=== PATIENT | male | born 1990 | race Caucasian/White ===

== ENCOUNTER 2021-05-08 09:21 | Emergency (ER) | payer SELFPAY ==
[2021-05-08 09:27] VITALS: BP 133/81; PULSE 89; RESP 24; TEMP 36.9; O2SAT 100
--- NOTE | 2021-05-08 09:44 | ED.URI ---
HPI - URI/Sore Throat General Chief Complaint: Upper Respiratory Infection Stated Complaint: cough and wheezing Time Seen by Provider: 05/08/21 09:40 Source: patient and RN notes reviewed Mode of arrival: ambulatory Limitations: no limitations History of Present Illness HPI Narrative: 30-year-old male presents with concern for cough, shortness of breath. He also reports nasal congestion, rhinorrhea. Report 6 months ago he had bronchitis and was treated with an inhaler. Reports since then he has not fully felt well. He denies any history of asthma. Denies having Covid. He reports his shortness of breath, wheezing, cough have increased over the last couple of days. He reports he also has nasal congestion and rhinorrhea. He denies any [id number] intervention MD elicited complaint: cough and other (Shortness of breath) Related Data Allergies Allergy/AdvReac Type Severity Reaction Status Date / Time Penicillins Allergy Hives Verified 05/08/21 09:37 Review of Systems Review of Systems: CONSTITUTIONAL: Denies malaise, chills, sweats, or fever. EYES: Denies visual changes, redness, or discharge. ENT: Reports rhinorrhea, congestion. Denies sinus pain, otalgia and sore throat. CARDIOVASCULAR: Denies chest pain, palpitations, or edema. RESPIRATORY: Reports cough, dyspnea. GASTROINTESTINAL: Denies abdominal pain, nausea, vomiting, diarrhea SKIN: Denies rash or itching. MUSCULOSKELETAL: Denies myalgia. NEUROLOGIC: Denies headache. All systems reviewed & are unremarkable except as noted in HPI and below PMFSH Comments At time of signature, agree with nursing past medical, surgical, social and family history. There is no relevant family history pertinent to the presenting complaint Exam Narrative: GENERAL: Well-appearing, well-nourished, and in no acute distress. HEAD: Normocephalic EYES: PERRLA, conjunctivae clear ENT: Nares clear, turbinates edematous and erythematous, clear discharge. Mucous membranes moist. TM pearly galindo with dull light reflex bilaterally; no tragal tenderness. Oropharynx not erythematous without lesions. Tonsils not enlarged and without exudate, no drooling, no hoarseness, no trismus, uvula midline. NECK: Supple. No lymphadenopathy CHEST: Scattered inspiratory and expiratory wheeze, diminished in the bases. No rhonchi, rales, or stridor. No respiratory distress, speaks in full sentences. HEART: Regular rate and rhythm. No murmur heard. SKIN: Warm, dry, no rash. NEURO: Alert and oriented x3. PSYCH: Normal mood and affect Course Course Emergency Course: Patient is aware of diagnosis, understands and agrees to treatment plan. Anticipatory guidance given. Patient agrees to follow-up as directed and is aware of reasons to seek care at the emergency department. Portions of this record may have been created with voice recognition software Level of Care: Express Care Visit Vital Signs Vital signs: Vital Signs Temperature 98.5 F 05/08/21 09:27 Pulse Rate 89 05/08/21 09:27 Respiratory Rate 24 H 05/08/21 09:27 Blood Pressure 133/81 05/08/21 09:27 Pulse Oximetry 100 05/08/21 09:27 Temperature 98.5 F 05/08/21 09:27 Pulse Rate 89 05/08/21 09:27 Respiratory Rate 24 H 05/08/21 09:27 Blood Pressure 133/81 05/08/21 09:27 Pulse Oximetry 100 05/08/21 09:27 Reviewed. MDM - URI/Sore Throat MDM Narrative Medical decision making narrative: Differential diagnosis considered: Tillman virus, strep pharyngitis, allergic rhinitis, upper respiratory tract infection, sinusitis, rhinosinusitis, nasopharyngitis. viral pharyngitis, otitis media, otitis externa, pneumonia, bronchitis, viral cough syndrome, viral syndrome, and influenza. Exam findings show no acute concerns or changes; patient is non-toxic appearing and is in no distress. Patient is appropriate for outpatient treatment and follow-up. Lab Data Attestation: I reviewed the patient's lab results. Critical Care Time Critical Care Time
[2021-05-08] MEDS: IPRATROPIUM BR 0.02% INH SOLN 0.5 MG/2.5 ML VIAL INHALATION (09:54)
[2021-05-08] MEDS: ALBUTEROL SULFATE NEB 2.5 MG/3 ML INH INHALATION (09:55)
[2021-05-08 10:25] VITALS: PULSE 90; RESP 18; O2SAT 100
== END 2021-05-08 10:30 | disposition home or self-care (01) ==
PROVIDERS: Emergency Provider Nurse Practitioner
DX: J40 Bronchitis, not specified as acute or chronic (principal)
CPT/HCPCS: 94640; 99214; G0463

== ENCOUNTER 2024-06-16 09:44 | Emergency (ER) | payer MEDICAID, SELFPAY ==
--- OUTSIDE RECORDS SUMMARY | 2024-06-16 09:46 | XMS_ITS | Clinical Summary ---
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 FIRST NEW CONTACT FOR EITHER IN 3 MO. SHE WAS TESTED TODAY AT [facility] Problems Includes: Problems addressed during this encounter and other active Problems No Active Problems Plan of Treatment - OTHER - Last Documented On 03/08/2009 5:53PM ; [facility] Bactrim DS 800-160 MG TABS, 1 twice a day, 10 days, 0 refills - Last Documented On 03/08/2009 5:53PM ; [facility] CALL W/ CONTACT DX TEST/ USE PROTECTION - Last Documented On 03/08/2009 5:53PM ; [facility] Assessments Includes: Assessments from this encounter Findings - Urethritis - Last Documented On 03/08/2009 5:53PM ; [facility] - Folliculitis - Last Documented On 03/08/2009 5:53PM ; [facility] Medical Equipment - Implanted Devices Includes: Current Devices No Medical Equipment Recorded Medications Includes: Medications discussed during this encounter and other current Medications New / Renewed during this visit RADHA BULL DO on 03/03/2009 Bactrim DS 800-160 MG OR TABS Provider: RADHA BULL DO 10 day supply: 20, 0 refills Diagnosis: Pharmacy: [facility] - [address] [place] [address], [phone] - Last Documented On 07/02/2021 7:44AM By PIERCE HART ; [facility] Current Medications (continue as prescribed) Doxycycline Hyclate 100 MG Oral Capsule 08/04/2023 Provider: IRA HERNANDEZ Diagnosis: Otitis media, unspecified, left ear One tablet twice a day Last Documented On 4 8:36AM By Ira HERNANDEZ ; [facility] Medrol 4 MG Oral Tablet Therapy Pack 08/04/2023 Provider: IRA OLIVER Diagnosis: Otitis media, unspecified, left ear as directed Last Documented On 4 8:36AM By Ira HERNANDEZ ; [facility] Medications Administered Includes: Administered Medications from this encounter No Administered Medications Recorded Vital Signs Includes: Vital Signs from this encounter Vital Name 03/03/2009 09:15A Blood Pressure Sitting (mmHg) 138/68 Respiration Rate (breaths/min) 16 Temp-Oral (F) 97.6 Weight (lb) 154 Last Documented: On 03/03/2009 9:19AM ; [facility] Results Includes: Results discussed during this encounter Urinalysis [facility] Ordered by RADHA BULL DO on 010 Collected: Reported: 03/03/2009 09:42 Last Documented On 0 9:44AM ; [facility] Reviewed on 07/02/2012; All test results are final unless otherwise noted. pH 5 (5-9) N (Normal) Last Documented On 0 9:44AM ; [facility] Leukocytes 75 (Negative) A (Abnormal) Last Documented On 0 9:44AM ; [facility] Nitrite n (Negative) N (Normal) Last Documented On 0 9:44AM ; [facility] Protein trace (Negative) A (Abnormal) Last Documented On 0 9:44AM ; [facility] Glucose n (Negative) N (Normal) Last Documented On 0 9:44AM ; [facility] Ketones n (Negative) N (Normal) Last Documented On 0 9:44AM ; [facility] Urobilinogen n (Negative) A (Abnormal) Last Documented On 0 9:44AM ; [facility] Bilirubin n (Negative) A (Abnormal) Last Documented On 0 9:44AM ; [facility] Blood n (Negative) N (Normal) Last Documented On 0 9:44AM ; [facility] Sp [place] 1.025 (1.015 - 1.030) N (Normal) Last Documented On 0 9:44AM ; [facility] History of Present Illness Includes: History of Present Illness from this encounter No History of Present Illness Recorded Social History Description Last Updated No tobacco use 09/18/2008 Last Documented On 0 9:15AM ; [facility] Not using alcohol 09/18/2008 Last Documented On 0 9:15AM ; [facility] Not using drugs 09/18/2008 Last Documented On 0 9:15AM ; [facility] Lives with unmarried father 08/26/2008 Last Documented On 0 9:15AM ; [facility] Smoking Status Unknown Medical History Includes: Medical History addressed during this encounter Description Last Updated A PPD was negative 09/18/2008 Last Documented On 0 9:15AM ; [facility] Blood pressure was not high 09/18/2008 Last Documented On 0 9:15AM ; [facility] No cardiac problems 09/18/2008 Last Documented On 0 9:15AM ; [facility] No exposure to tuberculosis 09/18/2008 Last Documented On 0 9:15AM ; [facility] No hearing problems 09/18/2008 Last Documented On 0 9:15AM ; [facility] No heart murmur 09/18/2008 Last Documented On 0 9:15AM ; [facility] No history of asthma 09/18/2008 Last Documented On 0 9:15AM ; [facility] No history of concussion 09/18/2008 Last Documented On 0 9:15AM ; [facility] No history of delayed milestones 009 Last Documented On 0 9:15AM ; [facility] No history of diabetes mellitus 09/19/19 09 Last Documented On 0 9:15AM ; [facility] No history of hematologic disorder 09/18 Last Documented On 0 9:15AM ; [facility] No history of sickle cell abnormality Last Documented On 0 9:15AM ; [facility] No orthopedic problems 09/18/2008 Last Documented On 0 9:15AM ; [facility] No previous hospitalizations 09/18/2008 Last Documented On 0 9:15AM ; [facility] No recent examination by an ophthalmolog ist 09/18/2008 Last Documented On 0 9:15AM ; [facility] No recent severe illness or injury 09/18 Last Documented On 0 9:15AM ; [facility] No Surgery 09/18/2008 Last Documented On 0 9:15AM ; [facility] No trauma to the head 09/18/2008 Last Documented On 0 9:15AM ; [facility] Not born with congenital abnormalities 0 09/18/2008 Last Documented On 0 9:15AM ; [facility] Not carrying hemophilia A 09/18/2008 Last Documented On 0 9:15AM ; [facility] Wearing contact lenses 09/18/2008 Last Documented On 0 9:15AM ; [facility] Patient's weight: 7 lbs 11 OZ 08/2008 Last Documented On 0 9:15AM ; [facility] History of the penis had been circumcise d 08/26/2008 Last Documented On 0 9:15AM ; [facility] is breast-feeding 08/26/2008 Last Documented On 0 9:15AM ; [facility] Surgery HERNIA 1994 08/26/2008 Last Documented On 0 9:15AM ; [facility] Vaginal delivery 08/26/2008 Last Documented On 0 9:15AM ; [facility] Family History Includes: Family History addressed during this encounter No Family History Recorded Review of Systems Includes: Review of Systems from this encounter Systemic: No edema. Head: No headache. Eyes: No vision problems. Cardiovascular: No chest pain or discomfort. Pulmonary: No shortness of breath. Neurological: No dizziness. Mental Status Includes: Mental Status from this encounter No Mental Status Recorded Functional Status Includes: Functional Status from this encounter No Functional Status Recorded Physical Exam Includes: Physical Exam from this encounter Allergies Includes: Active Allergies Substance Type Reaction Onset Date Resolved Date Statu s Penicillins Allergy 11/16/2016 Active Last Documented On 4 8:20AM ; [facility] Encounters Encounter Provider Location Date Check-In Time Check-Out Time Diagnosis SICK VISIT RADHA BULL [facility] 03/03/19 10 9:15AM 11:59PM Urethritis,Skin Disorders Appendage Hair Follicle Folliculitis Insurance Includes: Active Insurance Policies Plan Name Member ID Group # Subscriber Relationship Effect mauro Dates - [facility] [id number] RAISA SMITH Self Clinical Notes Includes: Clinical Notes from this encounter No Clinical Notes Recorded
--- OUTSIDE RECORDS SUMMARY | 2024-06-16 09:46 | XMS_ITS | Clinical Summary ---
Author Organization [facility] Address [address] [place] [address] Care Team Providers Care Information Systems Audit Manager Name Role Phone No, Physician Primary Care Provider [phone] Allergies Active Allergy Reactions Criticality Noted Date Comments Penicillins Hives Medium 05/08/2021 Medications fluticasone propion-salmete roL (ADVAIR DISKUS) 100-50 mcg/dose diskus inhaler Inhale 1 puff 2 (two) times a day Rinse mouth with water after use. Do not swallow. 1 each 2 Active Additional Information Patient not taking.Reported on 08/08/2021 naproxen (NAPROSYN) 500 mg tablet Take 1 tablet (500 mg total) by mouth 2 (two) times a day with meals 30 tablet 4 Active HYDROcodone-nighat taminophen (NORCO) 5-325 mg per tabletIndicatio ns:Pain Take 1 tablet by mouth every 6 (six) hours as needed for pain for up to 12 doses 12 tablet 4 Active Active Problems Problem Noted Date Diagnosed Date Fracture of other specified skull and facial bones, unspecified side, initial encounter for closed fracture 10/12/2016 Immunizations Immunization Administration Dates Next Due Tdap 02/01/2024 Surgical History Surgery Date Site/Laterality Comments HERNIA REPAIR Social History Tobacco Use Types Packs/Day Years Used Date Smoking Tobacco: Never Smokeless Tobacco: Never Personal Safety Answer Date Recorded Have you ever been in or are you currently in a harmful physical or emotional relationship or is someone making you feel afraid or unsafe? Denies 02/01/2024 Sex and Gender Information Value Date Recorded Sex Assigned at Not on file Legal Sex Male 11:20 AM [employer] Gender Identity Not on file Sexual Orientation Not on file Obstetrics History Last Filed Vital Signs Vital Sign Reading Time Taken Comments Blood Pressure 140/85 02/01/2024 3:01 PM [employer]P Pulse 77 02/01/2024 3:01 PM [employer] REP Temperature 36.4 C (97.5 F) 02/01/2024 3:01 PM [employer] REP Respiratory Rate 16 02/01/2024 3:01 PM [employer] REP Oxygen Saturation 98% 02/01/2024 3:01 PM [employer] REP Inhaled Oxygen Concentration - - Weight 83.9 kg (185 lb) 02/01/2024 3:01 PM [employer] REP Height 172.7 cm (5' 8 ) 02/01/2024 3:01 PM [employer] REP Body Mass Index 28.13 02/01/2024 3:01 PM [employer] REP Plan of Treatment Health Maintenance Due Date Last Done Comments Depression Screening 1990 Hepatitis C Screening 1990 Varicella Vaccines (1 of 2 - 13+ 2-dose series) 11/02/2003 Regular Well Visit/Exam 18-64 2008 Influenza Vaccine (#1) 2023 DTaP/Tdap/Td Vaccine (8 - Td or Tdap) 01/31/2034 02/01/2024, 09/30/2015, 09/26/1996, Additional history exists Hepatitis B Screening Completed 05/08/2001 , 12/14/2000, 11/07/2000 HPV Vaccines Aged Out No longer eligi ble based on patient's age to complete this topic Pneumococcal vaccine <65 Aged Out No longer eligible based on patient's age to complete this topic Insurance [facility] AETNA [employer] [facility] HMO/PPO Address: [address] [address] [place] [address] Care Teams Information Systems Audit Manager Relationship Specialty Start Date End Date No, Physician PCP - General 05/08/21
--- OUTSIDE RECORDS SUMMARY | 2024-06-16 09:46 | XMS_ITS | Clinical Summary ---
Author Organization [facility] Address [address] [place] [address] Phone Care Team Providers Care Car Rental Service Attendant Name Role Phone RADHA BULL DO [phone] Reason for Visit and Chief Complaint The Chief Complaint is: Sore throat, fever, body aches and headache for 2 days Problems Includes: Problems addressed during this encounter and other active Problems No Active Problems Plan of Treatment Throat culture sent, will call with results. Stay well hydrated and get plenty of rest. Can take OTC medications for symptoms such as expectorant and cough medication if needed. Discussed s/s of respiratory distress and when to go to ER. Can use humidifier or steam inhalation to help with chest congestion. If symptoms worsen or do not improve call/return to clinic. - Last Documented On 05/24/2023 9:53AM ; [facility] Assessments Includes: Assessments from this encounter Findings - Acute pharyngitis - Last Documented On 05/24/2023 9:53AM ; [facility] - Upper respiratory infection - Last Documented On 05/24/2023 9:53AM ; [facility] Medical Equipment - Implanted Devices Includes: Current Devices No Medical Equipment Recorded Medications Includes: Medications discussed during this encounter and other current Medications Discontinued / Stopped on this date JUAN SIDHU on 04/16/2022 Zithromax Z-Kavon 250 MG Oral Tablet Provider: JUAN SIDHU Diagnosis: Acute pharyngiti s, unspecified Last Documented On 05/24/2023 9:32AM By Lucie Fields MA ; [facility] Albuterol Sulfate HFA 108 (9 0 Base) MCG/ACT Inhalation Aerosol Solution Provider: Diagnosis: Last Documented On 05/24/2023 9:32AM By Lucie Fields MA ; [facility] Current Medications (continue as prescribed) Doxycycline Hyclate 100 MG Oral Capsule 08/04/2023 Provider: IRA HERNANDEZ Diagnosis: Otitis media, unspecified, left ear One tablet twice a day Last Documented On 4 8:36AM By Ira HERNANDEZ ; [facility] Medrol 4 MG Oral Tablet Therapy Pack 08/04/2023 Provider: IRA OLIVER Diagnosis: Otitis media, unspecified, left ear as directed Last Documented On 4 8:36AM By Ira HERNANDEZ ; [facility] Medications Administered Includes: Administered Medications from this encounter No Administered Medications Recorded Vital Signs Includes: Vital Signs from this encounter Vital Name 05/24/2023 09:24A Pulse Rate-Sitting (bpm) 78 Temp-Oral (F) 98.5 Height (in) 68.5 Weight (lb) 201.2 Body Mass Index 30.1 Body Surface Area 2.1 Oxygen Saturation (%) 98 Last Documented: On 05/24/2023 9:32AM ; [facility] Results Includes: Results discussed during this encounter Group A strep [facility] Ordered by RAUL ROWELL on 04/2023 Collected: Reported: 05/24/2023 09:45 Last Documented On 4 9:47AM ; [facility] Reviewed on 05/24/2023; All test results are final unless otherwise noted. Rapid Strep Negative N (Normal) Last Documented On 4 9:45AM ; [facility] LOT # AND EXP. DATE [id number] 12-16-25 N (Normal) Last Documented On 4 9:45AM ; [facility] INT. QC ACCEPTABLE? yes N (Normal) Last Documented On 4 9:45AM ; [facility] SARS COVID-19 FLU A & B [facility] Ordered by RAUL ROWELL on 04/2023 Collected: Reported: 05/24/2023 09:46 Last Documented On 4 9:47AM ; [facility] Reviewed on 05/24/2023; All test results are final unless otherwise noted. COVID Negative N (Normal) Last Documented On 4 9:46AM ; [facility] INFLUENZA A Negtive (Negative) N (Normal) Last Documented On 4 9:46AM ; [facility] INFLUENZA B Negative (negative) N (Normal) Last Documented On 4 9:46AM ; [facility] INT. QC ACCEPTABLE? yes N (Normal) Last Documented On 4 9:46AM ; [facility] LOT # & EXP. DATE [id number] 03-08-24 N (Normal) Last Documented On 4 9:46AM ; [facility] History of Present Illness Includes: History of Present Illness from this encounter GRACE FIELDS is a 32 year old male. - Allergy list reviewed - Medication list reviewed - Feeling tired - Feeling poorly (malaise) - Fever - Headache - No eye symptoms - No ear symptoms - No nasal discharge - No postnasal drip - No nasal passage blockage (stuffiness) - No sore throat - No chest pain or discomfort - No chest tightness or heavy pressure - No dyspnea - No cough - No wheezing - Normal appetite - No nausea - No vomiting - No abdominal pain - No diarrhea - No myalgia - No taste decreased Raisa is a 32-year-old male who presents to the [facility] with sore throat, fever, headache, body aches x 2 days. He has been taking OTC antihistamine for seasonal allergies. Social History Description Last Updated Tobacco non-user 05/24/2023 Last Documented On 4 9:53AM ; [facility] Smoking Status Unknown Procedures and Surgical History Includes: Procedures from this encounter Procedures Code Diagnosis Performing Provider Service L ocation Service Date Pt to use OTC fever/pain product as needed per product instruction.~ Last Documented On 4 9:48AM ; [facility] Pt to use OTC cough product as needed pe r product instruction.~ Last Documented On 4 9:48AM ; [facility] Pt to use OTC expectorant product as nee ded per product instruction.~ Last Documented On 4 9:48AM ; [facility] patient to call if symptoms worsen or not improved in 3-5 days to update patient's status Last Documented On 4 9:48AM ; [facility] use of tobacco assessment performed 1000F Last Documented On 4 9:33AM ; [facility] review of medications documented 1160F Last Documented On 4 9:33AM ; [facility] Medical History Includes: Medical History addressed during this encounter No Medical History Recorded Family History Includes: Family History addressed during this encounter No Family History Recorded Review of Systems Includes: Review of Systems from this encounter Systemic: No fever. Head: Headache. Otolaryngeal: No earache and no nasal discharge. Sore throat. Cardiovascular: No chest pain or discomfort. Pulmonary: No dyspnea, no cough, and no wheezing. Gastrointestinal: No vomiting, no abdominal pain, and no diarrhea. Musculoskeletal: Muscle aches. Neurological: No Loss of taste or smell. Skin: No skin symptoms. Mental Status Includes: Mental Status from this encounter Description Oriented to time, place, and person Functional Status Includes: Functional Status from this encounter No Functional Status Recorded Physical Exam Includes: Physical Exam from this encounter Allergies Includes: Active Allergies Substance Type Reaction Onset Date Resolved Date Statu s Penicillins Allergy 11/16/2016 Active Last Documented On 4 8:20AM ; [facility] Encounters Encounter Provider Location Date Check-In Time Check-Out Time Diagnosis COVID SICK VISIT- ESTABLISHED PATIENT RAUL ROWELL [facility] 05/24/19 24 9:23AM 9:49AM Upper Respiratory Infection,Phar yngitis Acute Insurance Includes: Active Insurance Policies Plan Name Member ID Group # Subscriber Relationship Effect mauro Dates 1 - [facility] [id number] RAISA FIELDS Self Clinical Notes Includes: Clinical Notes from this encounter * Progress note Date Encounter Last Documented by 05/24/2023 COVID SICK VISIT- ESTABLISHED PA JULIA Last documented on 05/24/2023; 9:53 AM, RAUL ROWELL; [facility] Chief Complaint The Chief Complaint is: Sore throat, fever, body aches and headache for 2 days. History of Present Illness RAISA FIELDS is a 32 year old male. - Allergy list reviewed - Medication list reviewed - Feeling tired - Feeling poorly (malaise) - Fever - Headache - No eye symptoms - No ear symptoms - No nasal discharge - No postnasal drip - No nasal passage blockage (stuffiness) - No sore throat - No chest pain or discomfort - No chest tightness or heavy pressure - No dyspnea - No cough - No wheezing - Normal appetite - No nausea - No vomiting - No abdominal pain - No diarrhea - No myalgia - No taste decreased Raisa is a 32-year-old male who presents to the [facility] with sore throat, fever, headache, body aches x 2 days. He has been taking OTC antihistamine for seasonal allergies. Social History Tobacco use: Tobacco non-user. Review Of Systems Systemic: No fever. Head: Headache. Otolaryngeal: No earache and no nasal discharge. Sore throat. Cardiovascular: No chest pain or discomfort. Pulmonary: No dyspnea, no cough, and no wheezing. Gastrointestinal: No vomiting, no abdominal pain, and no diarrhea. Musculoskeletal: Muscle aches. Neurological: No Loss of taste or smell. Skin: No skin symptoms. Physical Findings - Vitals taken 05/24/2023 09:24 am Pulse Rate-Sitting 78 bpm Temp-Oral 98.5 F Height 68.5 in Weight 201 lbs 3.2 oz Body Mass Index 30.1 kg/m2 Body Surface Area 2.1 m2 Oxygen Saturation 98 % General Appearance: - Awake. - Alert. - Well developed. - Well nourished. - Well hydrated. - In no acute distress. Eyes: General/bilateral: Pupils: - PERRLA. Ears: Right Ear: External Auditory Canal: - Normal. Tympanic Membrane: - Normal. - Not erythematous. Left Ear: External Auditory Canal: - Normal. Tympanic Membrane: - Normal. - Not erythematous. Nose: General/bilateral: Discharge: - No nasal discharge. Sinus Tenderness: - No sinus tenderness. Pharynx: Oropharynx: - Tonsils were erythematous. - Tonsils were enlarged. - Tonsils showed no abnormalities. - Tonsils showed no exudate. Lymph Nodes: - Lymph nodes: tender and enlarged anterior cevical lymph nodes. Lungs: - Normal breath sounds/voice sounds. - No wheezing was heard. - No rhonchi were heard. - No rales/crackles were heard. Cardiovascular: Heart Rate And Rhythm: - Normal. Murmurs: - No murmurs were heard. Abdomen: Auscultation: - Bowel sounds were normal. Palpation: - Abdomen was soft. - Abdominal non-tender. - No direct tenderness in the abdomen. Neurological: - Oriented to time, place, and person. Gait And Stance: - Normal. Tests - Test: Group A strep Report Date: 05/24/2023 Rapid Strep Negative Normal LOT # AND EXP. DATE [id number] 12-16-25 Normal INT. QC ACCEPTABLE? yes Normal - Test: SARS COVID-19 FLU A & B Report Date: 05/24/2023 COVID Negative Normal INFLUENZA A Negtive Normal INFLUENZA B Negative Normal INT. QC ACCEPTABLE? yes Normal LOT # & EXP. DATE [id number] 03-08-24 Normal Assessment - Acute pharyngitis - Upper respiratory infection Therapy - Patient to call if symptoms worsen or not improved in 3-5 days to update patient's status. Pt to use OTC fever/pain product as needed per product instruction. . Pt to use OTC cough product as needed per product instruction. . Pt to use OTC expectorant product as needed per product instruction. . Plan StartCited - Acute pharyngitis, unspecified Lab: Culture, Throat EndCited Throat culture sent, will call with results. Stay well hydrated and get plenty of rest. Can take OTC medications for symptoms such as expectorant and cough medication if needed. Discussed s/s of respiratory distress and when to go to ER. Can use humidifier or steam inhalation to help with chest congestion. If symptoms worsen or do not improve call/return to clinic. Practice Management Use of tobacco assessment performed Review of medications documented.
--- OUTSIDE RECORDS SUMMARY | 2024-06-16 09:46 | XMS_ITS | Clinical Summary ---
Author Organization [facility] Address [address] [place] [address] Phone Care Team Providers Care Auto Crane Driver Name Role Phone RADHA BULL DO [phone] Reason for Visit and Chief Complaint The Chief Complaint is: Lt ear pain since Monday-popping, and now feels clogged & worse with the pain Problems Includes: Problems addressed during this encounter and other active Problems No Active Problems Plan of Treatment Recommended OTC antihistamine and decongestant. Tylenol/ibuprofen prn for ear pain. Call/return to clinic if symptoms worsen or do not improve. - Last Documented On 08/04/2023 8:35AM ; [facility] Assessments Includes: Assessments from this encounter Findings - Otitis media of the left ear [H66.92 - Otitis media, unspecified, left ear] - Last Documented On 08/04/2023 8:35AM ; [facility] - Eustachian tube dysfunction [H69.80 - Other specified disorders of Eustachian tube, unspecified ear] - Last Documented On 08/04/2023 8:35AM ; [facility] Medical Equipment - Implanted Devices Includes: Current Devices No Medical Equipment Recorded Medications Includes: Medications discussed during this encounter and other current Medications New / Renewed during this visit IRA HERNANDEZ on 08/04/2023 Doxycycline Hyclate 100 MG Oral Capsule Provider: IRA HERNANDEZ 10 day supply: 20 capsule, 0 refills Diagnosis: Otitis media, unspecified, left ear One tablet twice a day Pharmacy: [facility] [address], [phone] - Last Documented On 8:36AM By Ira HERNANDEZ ; [facility] Medrol 4 MG Oral Tablet Therapy Pack Provider: IRA HERNANDEZ 6 day supply: 21 tablet, 0 refills Diagnosis: Otitis media, unspecified, left ear as directed Pharmacy: [facility] [address], [id number] - Last Documented On 8:36AM By Ira HERNANDEZ ; [facility] Past Medications on file Bactrim DS 800-160 MG OR TABS 03/03/2009 - 03/13/2009 Provider: RADHA BULL DO Diagnosis: Last Documented On 07/02/2021 7:44AM By PIERCE HART ; [facility] Medications Administered Includes: Administered Medications from this encounter No Administered Medications Recorded Vital Signs Includes: Vital Signs from this encounter Vital Name 08/04/2023 08:22A Blood Pressure Sitting L 98/70 BP Cuff Size Regular Pulse Rate-Sitting (bpm) 65 Pulse Rhythm Regular Respiration Rate (breaths/min) 21 Temp-Oral (F) 98.1 Height (in) 68.5 Weight (lb) 196 Body Mass Index 29.4 Body Surface Area 2 Oxygen Saturation (%) 99 Last Documented: On 08/04/2023 8:22AM ; [facility] Results Includes: Results discussed during this encounter No Results Recorded For Specified Dates History of Present Illness Includes: History of Present Illness from this encounter GRACE SMITH is a 32 year old male. - Allergy list reviewed - Medication list reviewed - Feeling fine - No fever - No chills - Headache - Earache in left ear - The ears feel pressured - The ears feel full - Nasal discharge - Postnasal drip - Nasal passage blockage (stuffiness) - No sore throat - No dyspnea - No cough - No wheezing - No vomiting - No skin symptoms Raisa is here today with pain, pressure and decreased hearing in the left ear that started a few days ago. He reports he has been having allergy and sinus issues and he recently went to [place] and flew home yesterday which seems to have aggravated the discomfort. He is taking [id number] antihistamine with minimal improvement. Social History Description Last Updated Tobacco non-user 08/04/2023 Last Documented On 4 8:35AM ; [facility] Smoking Status Unknown Procedures and Surgical History Includes: Procedures from this encounter Procedures Code Diagnosis Performing Provider Service L ocation Service Date use of tobacco assessment performed 1000F Last Documented On 4 8:21AM ; [facility] Medical History Includes: Medical History addressed during this encounter No Medical History Recorded Family History Includes: Family History addressed during this encounter No Family History Recorded Review of Systems Includes: Review of Systems from this encounter Head: No headache. Otolaryngeal: Earache and nasal discharge. No sore throat. Pulmonary: No cough. Gastrointestinal: No gastrointestinal symptoms. Skin: No skin symptoms. Mental Status Includes: Mental Status from this encounter Description Oriented to time, place, and person Functional Status Includes: Functional Status from this encounter No Functional Status Recorded Physical Exam Includes: Physical Exam from this encounter Allergies Includes: Active Allergies Substance Type Reaction Onset Date Resolved Date Statu s Penicillins Allergy 11/16/2016 Active Last Documented On 4 8:20AM ; [facility] Encounters Encounter Provider Location Date Check-In Time Check-Out Time Diagnosis WALK IN PATIENT - ESTABLISHED PT IRA MCFADDEN-Margaux [facility] 08/04/19 24 8:16AM 8:36AM Otitis Media Left Ear,Eustachian Tube Dysfunction Insurance Includes: Active Insurance Policies Plan Name Member ID Group # Subscriber Relationship Effect mauro Dates 1 - [facility] [id number] RAISA SMITH Self Clinical Notes Includes: Clinical Notes from this encounter * Progress note Date Encounter Last Documented by 08/04/2023 WALK IN PATIENT - ESTABLISHED PT Last documented on 08/04/2023; 8:35 AM, IRA MCFADDEN-Margaux; [facility] Active Problems & Conditions - No Active Problems Chief Complaint The Chief Complaint is: Lt ear pain since Monday-popping, and now feels clogged & worse with the pain. History of Present Illness RAISA SMITH is a 32 year old male. - Allergy list reviewed - Medication list reviewed - Feeling fine - No fever - No chills - Headache - Earache in left ear - The ears feel pressured - The ears feel full - Nasal discharge - Postnasal drip - Nasal passage blockage (stuffiness) - No sore throat - No dyspnea - No cough - No wheezing - No vomiting - No skin symptoms Raisa is here today with pain, pressure and decreased hearing in the left ear that started a few days ago. He reports he has been having allergy and sinus issues and he recently went to [place] and flew home yesterday which seems to have aggravated the discomfort. He is taking [id number] antihistamine with minimal improvement. Current Medication - None Social History Tobacco use: Tobacco non-user. Allergies - Penicillins Review Of Systems Head: No headache. Otolaryngeal: Earache and nasal discharge. No sore throat. Pulmonary: No cough. Gastrointestinal: No gastrointestinal symptoms. Skin: No skin symptoms. Physical Findings - Vitals taken 08/04/2023 08:22 am BP-Sitting L 98/70 mmHg BP Cuff Size Regular Pulse Rate-Sitting 65 bpm Pulse Rhythm Regular Respiration Rate 21 per min Temp-Oral 98.1 F Height 68.5 in Weight 196 lbs Body Mass Index 29.4 kg/m2 Body Surface Area 2 m2 Oxygen Saturation 99 % General Appearance: - Awake. - Alert. - Well developed. - Well nourished. - Well hydrated. - In no acute distress. Eyes: General/bilateral: Pupils: - PERRLA. Ears: Right Ear: External Auditory Canal: - Normal. Tympanic Membrane: - Pus behind tympanic membrane. - Normal. - Not erythematous. Left Ear: External Auditory Canal: - Normal. Tympanic Membrane: - Examined. - Pus behind tympanic membrane. - Not erythematous. Nose: General/bilateral: Discharge: - No nasal discharge. Sinus Tenderness: - No sinus tenderness. Pharynx: Oropharynx: - Tonsils showed no abnormalities. - Tonsils were not erythematous. - Tonsils were not enlarged. - Tonsils showed no exudate. Lymph Nodes: - Normal. Lungs: - Normal breath sounds/voice sounds. - [...] and person. Gait And Stance: - Normal. Psychiatric: Psychiatric: Value PHQ9 score: 0 Assessment - Otitis media of the left ear [H66.92 - Otitis media, unspecified, left ear] - Eustachian tube dysfunction [H69.80 - Other specified disorders of Eustachian tube, unspecified ear] Plan StartCited - Otitis media, unspecified, left ear Doxycycline Hyclate 100 MG capsule One tablet twice a day, 10 days, 0 refills Medrol 4 MG tablet as directed, 6 days, 0 refills EndCited Recommended OTC antihistamine and decongestant. Tylenol/ibuprofen prn for ear pain. Call/return to clinic if symptoms worsen or do not improve. Practice Management Use of tobacco assessment performed. Health Reminders - Assess BMI satisfied 08/04/2023. - Assess Tobacco Use satisfied 08/04/2023.
--- OUTSIDE RECORDS SUMMARY | 2024-06-16 09:46 | XMS_ITS ---
Care Plan - [facility] Created on: June 16, 2024 RAISA SMITH : 1990 Sex: Male Author Organization [facility] Address [address] [place] [address] Phone Care Team Providers Care News Videotape Editor Name Role Phone RADHA BULL DO [phone]
--- OUTSIDE RECORDS SUMMARY | 2024-06-16 09:46 | XMS_ITS | Clinical Summary ---
Author Organization [facility] Address [address] [place] [address] Phone Care Team Providers Care Sales And Customer Relations Rep Name Role Phone RADHA BULL DO [phone] Reason for Visit and Chief Complaint The Chief Complaint is: PT HAS C/O WHEEZING, PRODUCTIVE COUGH, AND SINUS PRESSURE. SYMPTOMS STARTEDAROUND SIX DAYS AGO Problems Includes: Problems addressed during this encounter and other active Problems No Active Problems Plan of Treatment - Return to the clinic if condition worsens or new symptoms arise - Last Documented On 11/16/2016 10:48AM ; [facility] - Referred to primary care physician - Last Documented On 11/16/2016 10:48AM ; [facility] - Follow-up visit in 1-2 weeks with an office visit or sooner if symptoms persist or worsen - Last Documented On 11/16/2016 10:48AM ; [facility] - Transition in care, clinical summary provided - Last Documented On 11/16/2016 10:48AM ; [facility] - Patient to call if problem develops - Last Documented On 11/16/2016 10:48AM ; [facility] Instructions to patient Go to the emergency room if condition worsens Last Documented On 7 10:46AM ; [facility] Watch for signs/symptoms of infection Last Documented On 7 10:46AM ; [facility] Watch for signs/symptoms of infection, return to the clinic if seen Last Documented On 7 10:46AM ; [facility] Education and Decision Aids were provided during visit for: Patient education about anti biotics: need to finish even if feeling better Last Documented On 7 10:46AM ; [facility] Assessments Includes: Assessments from this encounter No Assessments Recorded Instructions Includes: Instructions from this encounter Instructions to patient Go to the emergency room if condition worsens Last Documented On 7 10:46AM ; [facility] Watch for signs/symptoms of infection Last Documented On 7 10:46AM ; [facility] Watch for signs/symptoms of infection, return to the clinic if seen Last Documented On 7 10:46AM ; [facility] Education and Decision Aids were provided during visit for: Patient education about anti biotics: need to finish even if feeling better Last Documented On 7 10:46AM ; [facility] Medical Equipment - Implanted Devices Includes: Current Devices No Medical Equipment Recorded Medications Includes: Medications discussed during this encounter and other current Medications New / Renewed during this visit JUAN SIDHU on 11/16/2016 Azithromycin 500MG Oral Tablet Provider: JUAN SIDHU 5 day supply: 5 tablet, 0 refills Diagnosis: Cough One tablet daily Pharmacy: [address], [id number] - Last Documented On 3 5:48PM By ARELI MCBRIDE ; [facility] ProAir HFA 108 (90 Base)MCG/ACT Inhalation Aerosol, solution Provider: JAUN SIDHU 30 day supply: 1 inhaler, 0 refills Diagnosis: Wheezing use as directed 2 puffs ever y 4-6 hours as needed Pharmacy: [address], [id number] - Last Documented On 3 5:48PM By ARELI MCBRDIE ; [facility] Current Medications (continue as prescribed) Doxycycline Hyclate 100 MG Oral Capsule 08/04/2023 Provider: IRA HERNANDEZ Diagnosis: Otitis media, unspecified, left ear One tablet twice a day Last Documented On 4 8:36AM By Ira HERNANDEZ ; [facility] Medrol 4 MG Oral Tablet Therapy Pack 08/04/2023 Provider: IRA Mccullough NP-C Diagnosis: Otitis media, unspecified, left ear as directed Last Documented On 4 8:36AM By Ira HERNANDEZ ; [facility] Past Medications on file Bactrim DS 800-160 MG OR TABS 03/03/2009 - 03/13/2009 Provider: RADHA BULL DO Diagnosis: Last Documented On 07/02/2021 7:44AM By PIERCE HART ; [facility] Medications Administered Includes: Administered Medications from this encounter No Administered Medications Recorded Vital Signs Includes: Vital Signs from this encounter Vital Name 11/16/2016 10:13A Blood Pressure Sitting R 122/80 BP Cuff Size Regular Pulse Rate-Sitting (bpm) 70 Pulse Rhythm Regular Temp-Tympanic (F) 97.6 Weight (lb) 155 Oxygen Saturation (%) 98 Last Documented: On 11/16/2016 10:18A M ; [facility] Results Includes: Results discussed during this encounter No Results Recorded For Specified Dates History of Present Illness Includes: History of Present Illness from this encounter GRACE NUÑEZ is a 26 year old male. Source of patient information was patient ? Medication list reviewed - Headache - Sinus pain - No facial pain - No neck pain - No swollen glands in the neck - No eye symptoms - The ears feel pressured in both ears - Nasal discharge purulent - Postnasal drip - Nasal passage blockage (stuffiness) - Sore throat comes and goes - No sneezing - No nasal itching - No chest pain or discomfort - Cough - Wheezing - No dyspnea - No heartburn - No nausea - No vomiting - No abdominal pain - No diarrhea - Vertigo - No skin symptoms Pt to clinic for cough, congestion, wheezing and fever x 7 days. Has tried Delysum with mild relief Social History Description Last Updated Smoking status : Current everyday smoker 11/16/2016 Last Documented On 7 10:48AM ; [facility] Procedures and Surgical History Includes: Procedures from this encounter Procedures Code Diagnosis Performing Provider Service L ocation Service Date medication instruction Last Documented On 7 10:46AM ; [facility] continue current medication Last Documented On 7 10:46AM ; [facility] the options include decongestants as nee ded per product instructions Last Documented On 7 10:46AM ; [facility] the options include antihistamines as ne eded per product instructions Last Documented On 10:46AM ; [facility] watch for signs/symptoms of infection Last Documented On 10:46AM ; [facility] watch for signs/symptoms of infection, r eturn to the clinic if seen Last Documented On 10:46AM ; [facility] Pt to use prescription as ordered. Purpo se of and use of medication discussed.~ Last Documented On 10:46AM ; [facility] Pt to use OTC fever/pain product as need ed per product instruction.~ Last Documented On 10:46AM ; [facility] Pt to use OTC cough product as needed pe r product instruction.~ Last Documented On 10:46AM ; [facility] Pt to use OTC expectorant product as nee ded per product instruction.~ Last Documented On 10:46AM ; [facility] Clinical summary provided to patient Last Documented On 10:46AM ; [facility] Clinical summary transmitted to [facility] provider electronically Last Documented On 10:46AM ; [facility] Medical History Includes: Medical History addressed during this encounter No Medical History Recorded Family History Includes: Family History addressed during this encounter No Family History Recorded Review of Systems Includes: Review of Systems from this encounter Systemic: Fever and chills. No night sweats. Head: Sinus pressure. Otolaryngeal: Earache, nasal discharge, postnasal drip, and nasal passage blockage (stuffiness). Pulmonary: Feeling congested in the chest, cough, and coughing up sputum. Mental Status Includes: Mental Status from this encounter No Mental Status Recorded Functional Status Includes: Functional Status from this encounter No Functional Status Recorded Physical Exam Includes: Physical Exam from this encounter Allergies Includes: Active Allergies Substance Type Reaction Onset Date Resolved Date Statu s Penicillins Allergy 11/16/2016 Active Last Documented On 4 8:20AM ; [facility] Encounters Encounter Provider Location Date Check-In Time Check- Out Time Diagnosis WALK-IN CLINIC SICK VISIT JUAN RAYMUNDO SUPPLIER MANAGER-BC [facility] 10:00AM 10:46AM Insurance Includes: Active Insurance Policies Plan Name Member ID Group # Subscriber Relationship Effect mauro Dates 1 - [facility] [id number] RAISA SMITH Self Clinical Notes Includes: Clinical Notes from this encounter No Clinical Notes Recorded
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
--- OUTSIDE RECORDS SUMMARY | 2024-06-16 09:46 | XMS_ITS | Encounter Summary ---
Author Organization [facility] Address [address] [place] [address] Phone Care Team Providers Care Mangle Catcher Name Role Phone Joss Turner Primary Care Provider [phone] Reason for Visit * Reason Onset Date Comments prior authorization denied b y insurance 05/29/2023 Insurance [employer] has d eclined to authorization MRI of Brain Encounter Details Date Type Department Care Team (Late st Contact Info) Description 05/29/2023 Telephone [facility] [address] [place] [address] Joss Turner, PAC [address] [place] [address] prior authorization denied by insurance (Insurance [employer] has declined to authorization MRI of Brain) Social History Tobacco Use Types Packs/Day Years Used Date Smoking Tobacco: Every Day Smokeless Tobacco: Never Sex and Gender Information Value Date Recorded Sex Assigned at Not on file Legal Sex Male 7:57 PM CDT Gender Identity Not on file Sexual Orientation Not on file documented as of this encounter Miscellaneous Notes * Telephone Encounter - Nati Joshi - 05/29/2023 11:19 AM CDT Images from the original note were not included. documented in this encounter Plan of Treatment Not on file documented as of this encounter Visit Diagnoses Not on filedocumented in this encounter Care Teams Mangle Catcher Relationship Specialty Start Date End Date Joss Turner, PAC [address] [place] [address] PCP - General Physician Tufting Machine Operator Single Needle 12/01/21 documented as of this encounter
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
--- OUTSIDE RECORDS SUMMARY | 2024-06-16 09:46 | XMS_ITS | Referral Summary ---
Author Organization [facility] Address [address] [place] [address] Care Team Providers Care Box Car Washer Name Role Phone No, Physician Primary Care Provider [phone] Allergies Active Allergy Reactions Criticality Noted Date [...] Immunization Administration Dates Next Due Tdap 02/01/2024 Social History Tobacco Use Types Packs/Day Years [...] on file Legal Sex Male 11:20 AM SPECIAL NEEDS CAREGIVER Gender Identity Not on file Sexual Orientation Not on file Last Filed Vital Signs Vital Sign Reading Time Taken Comments Blood Pressure 140/85 02/01/2024 3:01 PM SPECIAL NEEDS CAREGIVER Pulse 77 02/01/2024 3:01 PM SPECIAL NEEDS CAREGIVER Temperature 36.4 C (97.5 F) 02/01/2024 3:01 PM SPECIAL NEEDS CAREGIVER Respiratory Rate 16 02/01/2024 3:01 PM SPECIAL NEEDS CAREGIVER Oxygen Saturation 98% 02/01/2024 3:01 PM SPECIAL NEEDS CAREGIVER Inhaled Oxygen Concentration - - Weight 83.9 kg (185 lb) 02/01/2024 3:01 PM SPECIAL NEEDS CAREGIVER Height 172.7 cm (5' 8 ) 02/01/2024 3:01 PM SPECIAL NEEDS CAREGIVER Body Mass Index 28.13 02/01/2024 3:01 PM SPECIAL NEEDS CAREGIVER Plan of Treatment Not on file Insurance [facility] H[facility]PP[facility] Address: [address] [address] [place] [address] Care Teams Box Car Washer Relationship Specialty Start Date End Date No, Physician PCP - General 05/08/21
--- OUTSIDE RECORDS SUMMARY | 2024-06-16 09:46 | XMS_ITS | Clinical Summary ---
Author Organization [facility] [employer] Address [address] [place] [address] Care Team Providers Care Transition Program Manager Name Role Phone Unavailable Primary Care Provider Unavailabl e Source Comments [facility] [employer],non-owned Affiliates and Associated Physician Practices is amultiple site organization consisting of ambulatory clinics and hospital sitesin [place], [place], [place] and [place]. This disclosure is being madepursuant to the Care Everywhere program and may not contain all information available regarding this patient. Last updated 17.[facility] Allergies Active Allergy Reactions Criticality Noted Date Comments Penicillins Skin Reactions Medium 09/30/2016 Medications * Be aware that medications may not be up to date on this document. Alwaysverify current medications with the patient. traMADol (ULTRAM) 50 MG tablet Take 50 mg by mouth q6h PRN. 15 tablet 0 09/30/2016 Active Active Problems Problem Noted Date Diagnosed Date Fracture of other specified skull and facial bones, unspecified side, initial encounter for closed fracture 10/12/2016 Social History Tobacco Use Types Packs/Day Years Used Date Smoking Tobacco: Every Day Cigarettes Smokeless Tobacco: Never Alcohol Use Standard Drinks/Week Comments No 0 (1 standard drink = 0.6 oz pur e alcohol) Sex and Gender Information Value Date Recorded Sex Assigned at Not on file Legal Sex Male 5:30 PM [employer] Gender Identity Not on file Sexual Orientation Not on file Last Filed Vital Signs Vital Sign Reading Time Taken Comments Blood Pressure 128/84 09/30/2016 4:17 AM CDT Pulse 65 09/30/2016 4:17 AM CDT Temperature 36.4 C (97.6 F) 09/30/2016 4:17 AM CDT Respiratory Rate 16 09/30/2016 4:17 AM CDT Oxygen Saturation 100% 09/30/2016 4:17 AM CDT Inhaled Oxygen Concentration - - Weight 74.8 kg (165 lb) 09/30/2016 4:17 AM CDT Height 170.2 cm (5' 7 ) 09/30/2016 4:17 AM CDT Body Mass Index 25.84 09/30/2016 4:17 AM CDT Plan of Treatment Health Maintenance Due Date Last Done Comments HIV SCREENING 2005 HEPATITIS C SCREENING 10/27/2008 DTAP/TDAP/TD VACCINES (1 - Tdap) 2009 HEPATITIS B VACCINE (1 of 3 - 19+ 3-dose series) 2009 COVID-19 VACCINE (1 - 2023-2 5 season) 2023 DEPRESSION SCREENING 02/21/2024 INFLUENZA VACCINE (Season Ended) 2024 ZOSTER VACCINE (1 of 2) 2040 HIB VACCINE Aged Out No longer eligi ble based on patient's age to complete this topic HPV VACCINE Aged Out No longer eligi ble based on patient's age to complete this topic MENINGOCOCCAL (Group B) VACC INE SHARED DECISION-MAKING Aged Out No longer eligibl e based on patient's age to complete this topic MENINGOCOCCAL GROUPS A/C/Y/W VACCINE Aged Out No longer eligible b ased on patient's age to complete this topic PNEUMOCOCCAL VACCINE Aged Out No long er eligible based on patient's age to complete this topic
--- OUTSIDE RECORDS SUMMARY | 2024-06-16 09:46 | XMS_ITS | Clinical Summary ---
Author Organization [facility] Address [address] [place] [address] Phone Care Team Providers Care Loom Doffer Name Role Phone RADHA BULL DO [phone] Reason for Visit and Chief Complaint The Chief Complaint is: pt is here with chills,feverish,fatigue,ma,bro,sore throat,nausea and diarrhea for 2 days Problems Includes: Problems addressed during this encounter and other active Problems No Active Problems Plan of Treatment - Return to the clinic if condition worsens or new symptoms arise - Last Documented On 04/16/2022 5:55PM ; [facility] - Follow-up visit as needed with an office visit if symptoms persist or worsen - Last Documented On 04/16/2022 5:55PM ; [facility] - Patient to call if problem develops - Last Documented On 04/16/2022 5:55PM ; [facility] Instructions to patient Go to the emergency room if condition worsens Last Documented On 3 5:54PM ; [facility] Watch for signs/symptoms of infection Last Documented On 3 5:54PM ; [facility] Watch for signs/symptoms of infection, return to the clinic if seen Last Documented On 3 5:54PM ; [facility] Assessments Includes: Assessments from this encounter Findings - Acute pharyngitis - Last Documented On 04/16/2022 5:55PM ; [facility] Instructions Includes: Instructions from this encounter Instructions to patient Go to the emergency room if condition worsens Last Documented On 3 5:54PM ; [facility] Watch for signs/symptoms of infection Last Documented On 3 5:54PM ; [facility] Watch for signs/symptoms of infection, return to the clinic if seen Last Documented On 3 5:54PM ; [facility] Medical Equipment - Implanted Devices Includes: Current Devices No Medical Equipment Recorded Medications Includes: Medications discussed during this encounter and other current Medications Discontinued / Stopped on this date JUAN SIDHU on 11/16/2016 Azithromycin 500MG Oral Tablet Provider: JUAN SIDHU Diagnosis: Cough Last Documented On 3 5:48PM By ARELI MCBRIDE ; [facility] ProAir HFA 108 (90 Base)MCG/ ACT Inhalation Aerosol, solution Provider: JUAN SIDHU Diagnosis: Wheezing Last Documented On 3 5:48PM By ARELI MCBRIDE ; [facility] New / Renewed during this visit JUAN SIDHU on 04/16/2022 Zithromax Z-Kavon 250 MG Oral Tablet Provider: JUAN SIDHU 5 day supply: 6 tablet, 0 refills Diagnosis: Acute pharyngitis, unspecified as directed Pharmacy: [address] [address] - Last Documented On 05/24/2023 9:32AM By Lucie Fields MA ; [facility] Current Medications (continue as prescribed) Doxycycline Hyclate 100 MG Oral Capsule 08/04/2023 Provider: IRA HERNANDEZ Diagnosis: Otitis media, unspecified, left ear One tablet twice a day Last Documented On 4 8:36AM By Ira HERNANDEZ ; [facility] Medrol 4 MG Oral Tablet Therapy Pack 08/04/2023 Provider: IRA Mccullough NP-C Diagnosis: Otitis media, unspecified, left ear as directed Last Documented On 4 8:36AM By Ira HERNANDEZ ; [facility] Past Medications on file Bactrim DS 800-160 MG OR TABS 03/03/2009 - 03/13/2009 Provider: RADHA BULL DO Diagnosis: Last Documented On 07/02/2021 7:44AM By PIERCE HART ; [facility] Medications Administered Includes: Administered Medications from this encounter No Administered Medications Recorded Vital Signs Includes: Vital Signs from this encounter Vital Name 04/16/2022 05:47P Blood Pressure Sitting (mmHg) 130/72 Pulse Rate-Sitting (bpm) 97 Respiration Rate (breaths/min) 18 Temp-Oral (F) 99 Height (in) 68 Weight (lb) 190.8 Body Mass Index 29 Body Surface Area 2 Oxygen Saturation (%) 97 Last Documented: On 04/16/2022 5:48PM ; [facility] Results Includes: Results discussed during this encounter Group A strep [facility] Ordered by JUAN SIDHU on Collected: Reported: 04/16/2022 17:51 Last Documented On 3 5:54PM ; [facility] Reviewed by JUAN SIDHU on 04/16/2022; All test results are final unless otherwise noted. Rapid Strep neg N (Normal) Last Documented On 3 5:53PM ; [facility] LOT # AND EXP. DATE [id number] N (Normal) Last Documented On 3 5:53PM ; [facility] INT. QC ACCEPTABLE? yes N (Normal) Last Documented On 3 5:53PM ; [facility] History of Present Illness Includes: History of Present Illness from this encounter GRACE FIELDS is a 31 year old male. - Allergy list reviewed - Medication list reviewed - Fever - Feeling fine - Not feeling tired - No chills - Do not shake the whole body - Headache - No sinus pain - No neck pain - No eye symptoms - Nasal discharge - Sore throat constantly - Triggered by swallowing - No ear symptoms - No postnasal drip - No nasal passage blockage (stuffiness) - No sneezing - No nasal itching - No chest pain or discomfort - No dyspnea - No cough - No wheezing - Decreased appetite - Diarrhea - No heartburn - No nausea - No vomiting - No abdominal pain - No skin symptoms pt to clinic for above symptoms x 2 days Social History Description Last Updated Former smoker 04/16/2022 Last Documented On 3 5:55PM ; [facility] Smoking status : Current everyday smoker 11/16/2016 Last Documented On 3 5:47PM ; [facility] Lives with unmarried father 08/26/2008 Last Documented On 3 5:47PM ; [facility] Procedures and Surgical History Includes: Procedures from this encounter Procedures Code Diagnosis Performing Provider Service L ocation Service Date continue current medication Last Documented On 3 5:54PM ; [facility] the options include close observation Last Documented On 3 5:54PM ; [facility] watch for signs/symptoms of infection Last Documented On 3 5:54PM ; [facility] watch for signs/symptoms of infection, r eturn to the clinic if seen Last Documented On 3 5:54PM ; [facility] Pt will start antibiotic the rapy as ordered. Discussed with pt /family that pt is contagious for 24 hours after start of antibiotic therapy and the importance of completing full course of antibiotic therapy. Recommended replacement of oral care products after three days of antibiotic therapy to reduce risk reinoculation with strep. Observe for signs/symptoms of strep in pt contacts. Discussed with pt /family expected course of improvement. Pt may return to activities after completing 24 hours of antibiotic therapy and feel well. Family to call back if not better in 3 days or worsens Last Documented On 3 5:55PM ; [facility] Pt to use OTC fever/pain product as need ed per product instruction.~ Last Documented On 3 5:54PM ; [facility] plan of care reviewed and agreed to by t chika patient Last Documented On 3 5:54PM ; [facility] Increase fluids Last Documented On 3 5:54PM ; [facility] Clinical summary provided to patient Last Documented On 3 5:54PM ; [facility] Medical History Includes: Medical History addressed during this encounter Description Last Updated Taking OTC medications 04/16/2022 Last Documented On 3 5:55PM ; [facility] Taking OTC pain medication / fever. Usin g Motrin 04/16/2022 Last Documented On 3 5:55PM ; [facility] Taking OTC pain medication /fever. Using Tylenol 04/16/2022 Last Documented On 3 5:55PM ; [facility] Wearing contact lenses 09/18/2008 Last Documented On 3 5:47PM ; [facility] Patient's weight: 7 lbs 11 OZ 08/2008 Last Documented On 3 5:47PM ; [facility] Surgery HERNIA 1994 08/26/2008 Last Documented On 3 5:47PM ; [facility] Vaginal delivery 08/26/2008 Last Documented On 3 5:47PM ; [facility] Family History Includes: Family History addressed during this encounter Description Last Updated Cancer 08/26/2008 Last Documented On 3 5:47PM ; [facility] Family history of blood pressure was hig h 08/26/2008 Last Documented On 3 5:47PM ; [facility] Family history of diabetes mellitus 08/2008 Last Documented On 3 5:47PM ; [facility] Review of Systems Includes: Review of Systems from this encounter Systemic: Fever and chills. Head: Headache. Otolaryngeal: Nasal discharge and sore throat. Mental Status Includes: Mental Status from this encounter No Mental Status Recorded Functional Status Includes: Functional Status from this encounter No Functional Status Recorded Physical Exam Includes: Physical Exam from this encounter Allergies Includes: Active Allergies Substance Type Reaction Onset Date Resolved Date Statu s Penicillins Allergy 11/16/2016 Active Last Documented On 4 8:20AM ; [facility] Encounters Encounter Provider Location Date Check-In Time Check-Out Time Diagnosis COVID SICK VISIT- NEW PATIENT JUAN SIDHU [facility] 04/16/19 23 5:40PM 5:55PM Pharyngitis Acute Insurance Includes: Active Insurance Policies Plan Name Member ID Group # Subscriber Relationship Effect mauro Dates 1 - [facility] [id number] RAISA FIELDS Self Clinical Notes Includes: Clinical Notes from this encounter * Progress note Date Encounter Last Documented by 04/16/2022 COVID SICK VISIT- NEW PATIENT [facility] documented on 04/16/2022; 5:55 PM, JUAN SIDHU; [facility] Active Problems & Conditions - No Active Problems Chief Complaint The Chief Complaint is: Pt is here with chills,feverish,fatigue,ma,bro,sore throat,nausea and diarrhea for 2 days. History of Present Illness RAISA FIELDS is a 31 year old male. - Allergy list reviewed - Medication list reviewed - Fever - Feeling fine - Not feeling tired - No chills - Do not shake the whole body - Headache - No sinus pain - No neck pain - No eye symptoms - Nasal discharge - Sore throat constantly - Triggered by swallowing - No ear symptoms - No postnasal drip - No nasal passage blockage (stuffiness) - No sneezing - No nasal itching - No chest pain or discomfort - No dyspnea - No cough - No wheezing - Decreased appetite - Diarrhea - No heartburn - No nausea - No vomiting - No abdominal pain - No skin symptoms pt to clinic for above symptoms x 2 days Current Medication - Albuterol Sulfate HFA 108 (90 Base) MCG/ACT Inhalation Aerosol Solution 30 days, 0 refills Past Medical/Surgical History Reported: Surgery HERNIA 1993. Medical: Wearing contact lenses. Medications: Taking OTC pain medication / fever. Using Motrin, [id number] /fever. Using Tylenol, and njti-nci-wkbzywj medications. : Vaginal delivery. Pediatric: Patient's weight: 7 lbs 11 OZ. Social History Tobacco use: Former smoker and smoking status: Current everyday smoker. Housing And Economic Circumstances: Lives with unmarried father. Allergies - Penicillins Family History Cancer Blood pressure was high Diabetes mellitus Review Of Systems Systemic: Fever and chills. Head: Headache. Otolaryngeal: Nasal discharge and sore throat. Physical Findings - Vitals taken 04/16/2022 05:47 pm BP-Sitting 130/72 mmHg Pulse Rate-Sitting 97 bpm Respiration Rate 18 per min Temp-Oral 99 F Height 68 in Weight 190 lbs 12.8 oz Body Mass Index 29 kg/m2 Body Surface Area 2 m2 Oxygen Saturation 97 % General Appearance: - Awake. - Alert. - Well developed. - Well nourished. - In no acute distress. Eyes: General/bilateral: Pupils: - PERRLA. Ears: Right Ear: Tympanic Membrane: - Normal. Left Ear: Tympanic Membrane: - Normal. Nose: General/bilateral: Discharge: - Nasal discharge. - Rhinorrhea. Sinus Tenderness: - No sinus tenderness. Pharynx: Oropharynx: - Tonsils showed abnormalities. - Tonsils were erythematous. - Tonsils were enlarged. - Inflamed. - Soft palate was normal. - Tonsils showed no exudate. Mucosal: - Pharynx showed no accumulation of mucous. Lymph Nodes: - Lymph nodes: - Anterior cervical lymph nodes were enlarged on the right. - Anterior cervical lymph nodes were enlarged on the left. - Tender lymph nodes. Lungs: - Clear to auscultation. Cardiovascular: Heart Rate And Rhythm: - Normal. Abdomen: Auscultation: - Bowel sounds were normal. Palpation: - No direct tenderness in the abdomen. Skin: - Mucous membranes were not dry. Tests - Test: Group A strep Report Date: 04/16/2022 Rapid Strep neg Normal LOT # AND EXP. DATE [id number] Normal INT. QC ACCEPTABLE? yes Normal Assessment - Acute pharyngitis Therapy - The options include close observation. - Increase fluids. - Watch for signs/symptoms of infection return to the clinic if seen. - Continue current medication. - Clinical summary provided to patient. - Plan of care reviewed and agreed to by the patient. Pt will start antibiotic therapy as ordered. Discussed with pt /family that pt is contagious for 24 hours after start of antibiotic therapy and the importance of completing full course of antibiotic therapy. Recommended replacement of oral care products after three days of antibiotic therapy to reduce risk reinoculation with strep. Observe for signs/symptoms of strep in pt contacts. Discussed with pt /family expected course of improvement. Pt may return to activities after completing 24 hours of antibiotic therapy and feel well. Family to call back if not better in 3 days or worsens. Pt to use OTC fever/pain product as needed per product instruction. . Counseling/Education - Go to the emergency room if condition worsens Discussed Finish Full prescription of antibiotics. Eat yogurt and BRAT diet if diarrhea develops Drink 8-8oz glasses of water a day. [place] teeth twice a day Get a new tooth brush and new tooth paste day 4 of antibiotic therapy Plan StartCited - Acute pharyngitis, unspecified In office procedures/*Clia Waived Labs: Rapid Strep Test Zithromax Z-Kavon 250 MG tablet as directed, 5 days, 0 refills EndCited - Return to the clinic if condition worsens or new symptoms arise - Follow-up visit as needed with an office visit if symptoms persist or worsen - Patient to call if problem develops Health Reminders - Assess BMI satisfied 04/16/2022. - Assess Tobacco Use satisfied 04/16/2022.
--- OUTSIDE RECORDS SUMMARY | 2024-06-16 09:46 | XMS_ITS ---
Author Organization [facility] Address [address] [place] [address] Phone Care Team Providers Care Environmental Monitoring Technician Name Role Phone RADHA BULL DO [phone] Problems Includes: Active, inactive, and resolved Problems No Active Problems Plan of Treatment Findings Encounter Date Ordered follow-up visit as n eeded with an office visit if symptoms persist or worsen COVID SICK VISIT- NEW PATIENT with JUAN Cruz [facility]- 04/16/2022 Last Documented On 3 5:55PM ; [facility] Ordered patient to call if p roblem develops COVID SICK VISIT- NEW PATIENT with JUAN RAYMUNDO [facility]- 04/16/2022 Last Documented On 3 5:55PM ; [facility] Ordered return to the clinic if condition worsens or new symptoms arise COVID SICK VISIT- NEW PATIENT with JUAN Cruz [facility]- 04/16/2022 Last Documented On 3 5:55PM ; [facility] Ordered follow-up visit in 1 -2 weeks with an office visit or sooner if symptoms persist or worsen WALK-IN CLINIC SICK VISIT with JUAN Cruz [facility]- 11/16/2016 Last Documented On 7 10:48AM ; [facility] Ordered patient to call if p roblem develops WALK-IN CLINIC SICK VISIT with JUANDAVY RAYMUNDO [facility] 11/16/2016 Last Documented On 7 10:48AM ; [facility] Ordered referred to primary care physician WALK-IN CLINIC SICK VISIT with JUANDAVY RAYMUNDO [facility] 11/16/2016 Last Documented On 7 10:48AM ; [facility] Ordered return to the clinic if condition worsens or new symptoms arise WALK-IN CLINIC SICK VISIT with JUAN Nancy RAYMUNDO [facility] 11/16/2016 Last Documented On 7 10:48AM ; [facility] Ordered Transition in care, clinical summary provided WALK-IN CLINIC SICK VISIT with JUAN Cruz [facility] 11/16/2016 Last Documented On 7 10:48AM ; [facility] Instructions to patient Go to the emergency room if condition worsens Last Documented On 3 5:54PM ; [facility] Watch for signs/symptoms of infection Last Documented On 3 5:54PM ; [facility] Watch for signs/symptoms of infection, return to the clinic if seen Last Documented On 3 5:54PM ; [facility] Go to the emergency room if condition worsens Last Documented On 7 10:46AM ; [facility] Watch for signs/symptoms of infection Last Documented On 7 10:46AM ; [facility] Watch for signs/symptoms of infection, return to the clinic if seen Last Documented On 7 10:46AM ; [facility] Education and Decision Aids were provided during visit for: Patient education about anti biotics: need to finish even if feeling better Last Documented On 7 10:46AM ; [facility] Assessments Includes: Assessments for all patient encounters Findings Encounter Date Eustachian tube dysfunction WALK IN [place] [facility] - ESTABLISHED PT with IRA [facility] 08/04/2023 Last Documented On 4 8:35AM ; [facility] Otitis media of the left ear WALK IN PAT IENT - ESTABLISHED PT with IRA Davis [facility] 08/04/2023 Last Documented On 4 8:35AM ; [facility] Acute pharyngitis COVID SICK VISIT- ES TABLISHED PATIENT with RAUL WALKER 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 Last Documented On 4 9:53AM ; [facility] Upper respiratory infection COVID SICK V ISIT- ESTABLISHED PATIENT with RAUL WALKER [employer] 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 Last Documented On 4 9:53AM ; [facility] Acute pharyngitis COVID SICK VISIT- NE W PATIENT with JUANDAVY RAYMUNDO [facility] 04/16/2022 Last Documented On 3 5:55PM ; [facility] Folliculitis SICK VISIT with RADHA BULL DO 03/03/2009 Last Documented On 0 5:53PM ; [facility] Urethritis SICK VISIT with RADHA FULLERSCOUT DO 03/03/2009 Last Documented On 0 5:53PM ; [facility] Nonvenomous insect bite of fingers SCHOOL PHYSIC AL with RADHA BULL DO 09/18/2008 Last Documented On 9 10:27AM ; [facility] SCHOOL/[employer]ORT PH[employer]ICAL S[employer]OL PHYSICAL with RADHA BULL DO 09/18/2008 Last Documented On 9 10:27AM ; [facility] Instructions Includes: Instructions for all patient encounters Instructions to patient Go to the emergency room if condition worsens Last Documented On 3 5:54PM ; [facility] Watch for signs/symptoms of infection Last Documented On 3 5:54PM ; [facility] Watch for signs/symptoms of infection, return to the clinic if seen Last Documented On 3 5:54PM ; [facility] Go to the emergency room if condition worsens Last Documented On 7 10:46AM ; [facility] Watch for signs/symptoms of infection Last Documented On 7 10:46AM ; [facility] Watch for signs/symptoms of infection, return to the clinic if seen Last Documented On 7 10:46AM ; [facility] Education and Decision Aids were provided during visit for: Patient education about anti biotics: need to finish even if feeling better Last Documented On 7 10:46AM ; [facility] Medical Equipment - Implanted Devices Includes: Current and historical Devices No Medical Equipment Recorded Medications Includes: Current and historical Medications Current Medications (continue as prescribed) Doxycycline Hyclate 100 MG Oral Capsule 08/04/2023 Provider: IRA MCFADDEN-C Diagnosis: Otitis media, unspecified, left ear One tablet twice a day Last Documented On 4 8:36AM By Ira HERNANDEZ ; [facility] Medrol 4 MG Oral Tablet Therapy Pack 08/04/2023 Provider: IRA LANDAVERDEC Diagnosis: Otitis media, unspecified, left ear as directed Last Documented On 4 8:36AM By Ira HERNANDEZ ; [facility] Past Medications on file Zithromax Z-Kavon 250 MG Oral Tablet 04/16/2022 - 05/24/2023 Provider: JUAN MCFADDEN-BC Diagnosis: Acute pharyngiti s, unspecified as directed Last Documented On 05/24/2023 9:32AM By Lucie Fields MA ; [facility] Albuterol Sulfate HFA 108 (9 0 Base) MCG/ACT Inhalation Aerosol Solution 05/08/2021 - 05/24/2023 Provider: Diagnosis: Last Documented On 05/24/2023 9:32AM By Lucie Fields MA ; [facility] Azithromycin 500MG Oral Tablet 11/16/2016 - 04/16/2022 Provider: JUAN DODSON Diagnosis: Cough One tablet daily Last Documented On 3 5:48PM By ARELI MCBRIDE ; [facility] ProAir HFA 108 (90 Base)MCG/ACT Inhalation Aerosol, solution 11/16/2016 - 04/16/2022 Provider: JUAN MCFADDEN- Diagnosis: Wheezing use as directed 2 puffs every 4-6 hours as neede d Last Documented On 3 5:48PM By ARELI MCBRIDE ; [facility] Bactrim DS 800-160 MG OR TABS 03/03/2009 - 03/13/2009 Provider: RADHA BULL DO Diagnosis: Last Documented On 07/02/2021 7:44AM By PIERCE HART ; [facility] Medications Administered Includes: Administered Medications in patient's chart No Administered Medications Recorded Vital Signs Includes: Vital Signs from 06/17/2023 through 06/16/2024 Vital Name 08/04/2023 08:22A Blood Pressure Sitting L 98/70 BP Cuff Size Regular Pulse Rate-Sitting (bpm) 65 Pulse Rhythm Regular Respiration Rate (breaths/min) 21 Temp-Oral (F) 98.1 Height (in) 68.5 Weight (lb) 196 Body Mass Index 29.4 Body Surface Area 2 Oxygen Saturation (%) 99 Last Documented: On 08/04/2023 8:22AM ; [facility] Results Includes: Results from 06/17/2023 through 06/16/2024 No Results Recorded For Specified Dates History of Present Illness History of Present Illness not supported for this document type No History of Present Illness Recorded Social History Description Last Updated Tobacco non-user 08/04/2023 Last Documented On 4 8:35AM ; [facility] Former smoker 04/16/2022 Last Documented On 3 5:55PM ; [facility] Smoking status : Current everyday smoker 11/16/2016 Last Documented On 7 10:48AM ; [facility] No tobacco use 09/18/2008 Last Documented On 9 10:27AM ; [facility] Not using alcohol 09/18/2008 Last Documented On 9 10:27AM ; [facility] Not using drugs 09/18/2008 Last Documented On 9 10:27AM ; [facility] Lives with unmarried father 08/26/2008 Last Documented On 9 8:29PM ; [facility] Medical History Includes: Medical History in patient's chart Description Last Updated Taking OTC medications 04/16/2022 Last Documented On 3 5:55PM ; [facility] Taking OTC pain medication /fever. Using Tylenol 04/16/2022 Last Documented On 3 5:55PM ; [facility] A PPD was negative 09/18/2008 Last Documented On 9 10:27AM ; [facility] Blood pressure was not high 09/18/2008 Last Documented On 9 10:27AM ; [facility] No cardiac problems 09/18/2008 Last Documented On 9 10:27AM ; [facility] No exposure to tuberculosis 09/18/2008 Last Documented On 9 10:27AM ; [facility] No hearing problems 09/18/2008 Last Documented On 9 10:27AM ; [facility] No heart murmur 09/18/2008 Last Documented On 9 10:27AM ; [facility] No history of asthma 09/18/2008 Last Documented On 9 10:27AM ; [facility] No history of concussion 09/18/2008 Last Documented On 9 10:27AM ; [facility] No history of delayed milestones 009 Last Documented On 9 10:27AM ; [facility] No history of diabetes mellitus 09/19/19 09 Last Documented On 9 10:27AM ; [facility] No history of hematologic disorder 09/18 Last Documented On 9 10:27AM ; [facility] No history of sickle cell abnormality Last Documented On 9 10:27AM ; [facility] No orthopedic problems 09/18/2008 Last Documented On 9 10:27AM ; [facility] No previous hospitalizations 09/18/2008 Last Documented On 9 10:27AM ; [facility] No recent examination by an ophthalmolog ist 09/18/2008 Last Documented On 9 10:27AM ; [facility] No recent severe illness or injury 09/18 Last Documented On 9 10:27AM ; [facility] No Surgery 09/18/2008 Last Documented On 9 10:27AM ; [facility] No trauma to the head 09/18/2008 Last Documented On 9 10:27AM ; [facility] Not born with congenital abnormalities 0 09/18/2008 Last Documented On 9 10:27AM ; [facility] Not carrying hemophilia A 09/18/2008 Last Documented On 9 10:27AM ; [facility] Wearing contact lenses 09/18/2008 Last Documented On 9 10:27AM ; [facility] Patient's weight: 7 lbs 11 OZ /08/2008 Last Documented On 9 8:29PM ; [facility] History of the penis had been circumcise d 08/26/2008 Last Documented On 9 8:29PM ; [facility] is breast-feeding 08/26/2008 Last Documented On 9 8:29PM ; [facility] Surgery HERNIA 1994 08/26/2008 Last Documented On 9 8:29PM ; [facility] Vaginal delivery 08/26/2008 Last Documented On 9 8:29PM ; [facility] Family History Includes: Family History in patient's chart Description Last Updated No sudden early deaths 09/18/2008 Last Documented On 9 10:27AM ; [facility] Cancer 08/26/2008 Last Documented On 9 8:29PM ; [facility] Family history of blood pressure was hig h 08/26/2008 Last Documented On 9 8:29PM ; [facility] Family history of diabetes mellitus 08/2008 Last Documented On 9 8:29PM ; [facility] No bleeding problems 08/26/2008 Last Documented On 9 8:29PM ; [facility] No family history of arthritis 9 Last Documented On 9 8:29PM ; [facility] No family history of defects 08/26 Last Documented On 9 8:29PM ; [facility] No family history of convulsions 009 Last Documented On 9 8:29PM ; [facility] No family history of stroke syndrome 08/2008 Last Documented On 9 8:29PM ; [facility] Review of Systems Review of Systems not supported for this document type No Review of Systems Recorded Mental Status Description Oriented to time, place, and person Functional Status No Functional Status Recorded Physical Exam Physical Exam not supported for this document type No Physical Exam Recorded Allergies Includes: Active, inactive, and resolved Allergies Substance Type Reaction Onset Date Resolved Date Statu s Penicillins Allergy 11/16/2016 Active Last Documented On 4 8:20AM ; [facility] Encounters Includes: Encounters from 06/17/2023 through 06/16/2024 Encounter Provider Location Date Check-In Time Check-Out Time Diagnosis WALK IN PATIENT - ESTABLISHED PT IRA MCFADDEN-C [facility] 08/04/19 8:16AM 8:36AM Otitis Media Left Ear,Eustachian Tube Dysfunction Insurance Includes: Active Insurance Policies Plan Name Member ID Group # Subscriber Relationship Effect mauro Dates 1 - [facility] [id number] RAISA FIELDS Self Clinical Notes Includes: Signed Clinical Notes starting from 03/11/2022 * Progress note Date Encounter Last Documented by 08/04/2023 WALK IN PATIENT - ESTABLISHED PT Last documented on 08/04/2023; 8:35 AM, IRA Davis GLENDY HERNANDEZ; [facility] Active Problems & Conditions - No Active Problems Chief Complaint The Chief Complaint is: Lt ear pain since Monday-popping, and now feels clogged & worse with the pain. History of Present Illness RAISA FIELDS is [...] sinus issues and he recently went to [place] and flew home yesterday which seems to have aggravated the discomfort. He is taking [id number] antihistamine with minimal improvement. Current Medication - [...]
--- OUTSIDE RECORDS SUMMARY | 2024-06-16 09:50 | XMS_ITS | Continuity of Care Document ---
Author Organization [facility] Address [address] [place] [address] Phone Care Team Providers Care Parts Counter Sales Person Name Role Phone Dajuan FRANCIS, RAY, Irasema Unavailable Unavaila ble Allergies, Adverse Reactions, Alerts Substance Reaction Status Criticality Penicillins Hives Active No Information Procedures Procedure Date OFFICE/OUTPATIENT VISIT, EST Advance Directives Directive Yes / No Effective Date File Name No Information Encounters Encounter Description Practice Location Reason(s) For Visit Diagnoses Date Provider Providers Copied on Encounter [facility], [address] [place] [address], [facility], tel:[phone] [place] STITCHES OUT (chief complaint) Laceration without FB of neck, subsequent encounter Dajuan Villalpando. [address] [place], [place], [facility], . tel: [phone] OFFICE/OUTPAT IENT VISIT, EST [facility], [address] [place] [address], [facility], tel:[phone] [place] CHECK STITCHES (chief complaint) Laceration without FB of neck, initial encounter Dajuan Villalpando. [address] [place], [place], [facility], [place]. tel:[phone] Family History Family Member Type Diagnosis Age At Onset No Information Payers Payer name Insurance type Covered constitution party ID Authoriza tion(s) No Information Social [...] Mental Status Date Cognitive Assessment Orientation - [place] ed to time, place, person, situation. Patient Care Teams Name Effective Dates (start - stop) Status Members No Information
[2024-06-16 09:51] VITALS: BP 143/82; PULSE 65; RESP 16; TEMP 36.6; O2SAT 100
--- NOTE | 2024-06-16 10:31 | ED_ITS ---
HPI - General Adult General Chief complaint: Wound/Laceration Stated complaint: Insect Bite/Left Knee Source: patient Mode of arrival: ambulatory Limitations: no limitations History of Present Illness HPI narrative: Pt presents for evaluation of redness to the left knee. Symptom onset six days ago. He believes his symptoms may be related to a spider bite. 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 He rates his pain as 6/10 in severity. He noted some thick yellow drainage from the area. He reports fever last week. No chills, nausea, vomiting or diarrhea. Related Data Allergies Allergy/AdvReac Type Severity Reaction Status Date / Time Penicillins Allergy Hives Verified 06/16/24 10:06 Review of Systems Review of Systems: CONSTITUTIONAL: Denies fever, chills, or sweats. EYES: Denies visual changes, redness, or discharge. ENT: Denies rhinorrhea, congestion, sore throat, or otalgia. CARDIOVASCULAR: Denies chest pain, palpitations, or edema. RESPIRATORY: Denies cough or dyspnea. GASTROINTESTINAL: Denies abdominal pain, nausea, vomiting, or diarrhea. GENITOURINARY: Denies dysuria or hematuria. SKIN: Reports redness with yellow drainage from the left knee MUSCULOSKELETAL: Reports pain in left knee wound. Denies back pain or myalgia. NEUROLOGIC: Denies headache, numbness, dizziness, or weakness. PSYCHIATRIC: Denies anxiety or depression. PMFSH Past Medical History Medical History Asthma Surgical History Surgical History No pertinent past surgical history Family History Family History Mother Family history non-contributory Social History Social History Smoking status: Never smoker Gender identity (if verbalized by the patient): Male Spiritual care concerns: No Exam Narrative: GENERAL: Well-appearing, well-nourished, and in no acute distress. HEAD: Normocephalic, atraumatic. EYES: PERRLA and EOMI. ENT: Nares clear, no rhinorrhea or epistaxis. Mucous membranes moist. Oropharynx without tonsillar hypertrophy exudate or other lesions. Bilateral TMs pearly galindo nonbulging NECK: Supple. No adenopathy or masses. No carotid bruits or JVD CHEST: Clear to auscultation. No respiratory distress. No wheezes rales or rhonchi HEART: Regular rate and rhythm. No murmur heard. Normal peripheral pulses. ABDOMEN: Soft, nontender, nondistended, normal active bowel sounds. EXTREMITIES: Normal range of motion. No edema. SKIN: There is a pinpoint area of dried serosanguinous drainage to the anterior aspect of the left knee with 2 x 2.5cm area of surrounding erythema NEURO: No focal deficits. Alert and oriented x3. PSYCH: Normal mood and affect. Course Course Emergency Course: This is a 33 year old male who presented for evaluation of redness and drainage from the left knee. Exam is consistent with cellulitis. Wound culture obtained. Will dc with bactrim and keflex. Advised on wound care. Follow up with primary provider. Go to the ER for worsening symptoms. Patient in agreement with plan of care. Level of Care: Express Care Visit Vital Signs Vital signs: Vital Signs Temperature 36.6 C 06/16/24 09:51 Pulse Rate 65 06/16/24 09:51 Respiratory Rate 16 06/16/24 09:51 Blood Pressure 143/82 H 06/16/24 09:51 Pulse Oximetry 100 06/16/24 09:51 Oxygen Delivery Room Air 06/16/24 09:51 Temperature 36.6 C 06/16/24 09:51 Pulse Rate 65 06/16/24 09:51 Respiratory Rate 16 06/16/24 09:51 Blood Pressure 143/82 H 06/16/24 09:51 Pulse Oximetry 100 06/16/24 09:51 Oxygen Delivery Room Air 06/16/24 09:51 Medical Decision Making Vital Signs Vital Signs: Vital Signs Temperature 36.6 C 06/16/24 09:51 Pulse Rate 65 06/16/24 09:51 Respiratory Rate 16 06/16/24 09:51 Blood Pressure 143/82 H 06/16/24 09:51 Pulse Oximetry 100 06/16/24 09:51 Oxygen Delivery Room Air 06/16/24 09:51 Temperature 36.6 C 06/16/24 09:51 Pulse Rate 65 06/16/24 09:51 Respiratory Rate 16 06/16/24 09:51 Blood Pressure 143/82 H 06/16/24 09:51 Pulse Oximetry 100 06/16/24 09:51 Oxygen Delivery Room Air 06/16/24 09:51 Discharge Plan Discharge Clinical Impression: Cellulitis of knee, left Patient Disposition: Home Condition: Stable Instructions: Antibiotic Form, Cellulitis (ED) Patient Language: Thai Prescriptions: New sulfamethoxazole-trimethoprim [Bactrim DS] 800-160 mg tablet 1 tablet PO Q12H Qty: 20 0RF cephalexin 500 mg capsule 500 mg PO Q6H 10 Days Qty: 40 0RF No Action albuterol sulfate 90 mcg/actuation HFA aerosol inhaler 2 puff INHALATION QID PRN (Reason: shortness of breath or wheezing) Qty: 8.5 1RF Follow-up/Referrals: Tyree Rodriguez MD [Physician] - Time of Disposition: 10:27
== END 2024-06-16 10:38 | disposition home or self-care (01) ==
PROVIDERS: Emergency Provider Nurse Practitioner
DX: L03.116 Cellulitis of left lower limb (principal); J45.909 Unspecified asthma, uncomplicated
CPT/HCPCS: 87070; 87075; 87181; 87205; 99213; G0463